=== PATIENT | female | born 1995 | race Caucasian/White ===

== ENCOUNTER 2020-07-12 08:08 | Inpatient (IN) | payer MEDICAID, OTHER ==
[~2020-07-12] VITALS: Ht 149.9 cm; Wt 63.5 kg
[2020-07-12] MEDS ORDERED: BUTORPHANOL TARTRATE 2 MG/ML VIAL IV PRN (10:00)
[2020-07-12] MEDS ORDERED: METHYLERGONOVINE MALEATE 0.2 MG/ML IM PRN (10:00)
[2020-07-12] MEDS ORDERED: LIDOCAINE HCL 1% 20ML VIAL (Pyxis) INJ INFIL SCH (10:00)
[2020-07-12] MEDS ORDERED: MISOPROSTOL 100MCG TABLET RC SCH (10:00)
[2020-07-12 10:42] LABS: BASOPHILS % 0.3 % (0.0-2.0); EOSINOPHILS % 0.6 % (0.0-5.0); HEMATOCRIT. 36.9 % (36.0-48.0); HEMOGLOBIN. 12.2 g/dL (12.0-16.0); LYMPHOCYTES % 17.7 % (20.0-50.0); MEAN CORPUSCULAR HEMOGLOBIN 28.1 pg (28.0-32.0); MEAN CORPUSCULAR VOLUME 85.1 fL (81.0-99.0); MEAN PLATELET VOLUME 8.5 fl (7.4-10.4); MONOCYTES % 8.1 % (2.0-8.0); NEUTROPHILS % 73.3 % (40.0-76.0); PLATELET 207 x1000/uL (130-400); RED BLOOD CELL COUNT 4.33 mill/uL (4.2-5.4); RED CELL DISTRIBUTION WIDTH 15.1 % (11.6-14.6)
[2020-07-12 10:53] LABS: INR 0.9; PARTIAL THROMBOPLASTIN TIME 25.6 sec (23.4-31.0); PROTHROMBIN TIME 9.7 sec (9.6-11.0)
[2020-07-12 10:55] LABS: CLARITY URINE CLOUDY (CLEAR); COLOR URINE YELLOW (YELLOW); KETONES URINE NEGATIVE (NEGATIVE); LEUKOCYTE ESTERASE URINE 3+ (NEGATIVE); NITRITE URINE NEGATIVE (NEGATIVE); OCCULT BLOOD URINE NEGATIVE (NEGATIVE); PROTEIN URINE NEGATIVE (NEGATIVE); SPECIFIC GRAVITY URINE 1.006 (1.005-1.030); UROBILINOGEN URINE 0.2 E.U./dL (0.2-1.0)
[2020-07-12 11:45] LABS: *AMPHETAMINES SCREEN URINE NEGATIVE (NEGATIVE); *BARBITURATES SCREEN URINE NEGATIVE (NEGATIVE); *BENZODIAZEPINES SCREEN URINE NEGATIVE (NEGATIVE); *COCAINE SCREEN URINE NEGATIVE (NEGATIVE)
[2020-07-12 11:46] LABS: CANNABINOID URINE SCREEN NEGATIVE (NEGATIVE); METHADONE URINE SCREEN NEGATIVE (NEGATIVE); OPIATES URINE SCREEN NEGATIVE (NEGATIVE); PHENCYCLIDINE URINE SCREEN NEGATIVE (NEGATIVE)
[2020-07-12] MEDS ORDERED: PENICILLIN G POTASSIUM 5 MMU in DEXT 5% WATER 100 ML IV SCH (12:00)
[2020-07-12 12:07] LABS: HEPATITIS B SURFACE ANTIGEN NEGATIVE
[2020-07-12] MEDS: DEXT 5%/LR + PITOCIN 20UNITS/L 1,000 ML IV SCH ×2 (13:29→21:35)
[2020-07-12] MEDS: LACTATED RINGERS 1,000 ML IV SCH ×2 (13:31→19:21)
[2020-07-12] MEDS ORDERED: ROPIVACAINE HCL/PF EPIDURAL 200 ML EPI SCH (15:45)
[2020-07-12] MEDS ORDERED: LIDOCAINE HCL 2%/EPINEPHRINE 1:100,000 20 ML VIAL INFIL ONE (15:50)
[2020-07-12] MEDS ORDERED: EPHEDRINE SULFATE 50MG/ML VIAL ONE (15:50)
[2020-07-12] MEDS: PENICILLIN G POTASSIUM 2.5 MMU in DEXTROSE 5% WATER 50 ML IV SCH ×2 (17:47→23:49)
[2020-07-13] MEDS: PENICILLIN G POTASSIUM 2.5 MMU in DEXTROSE 5% WATER 50 ML IV SCH ×2 (04:42→16:36)
[2020-07-13] MEDS: LACTATED RINGERS 1,000 ML IV SCH ×4 (04:45→22:41)
[2020-07-13] MEDS ORDERED: FENTANYL CITRATE/PF 50MCG/ML 2ML VIAL ONE ×4 (06:48→18:11)
[2020-07-13] MEDS ORDERED: ROPIVACAINE HCL/PF EPIDURAL 200 ML EPI SCH (13:15)
[2020-07-13] MEDS ORDERED: MORPHINE SULFATE/PF 1MG/ML 10ML AMP ONE (18:12)
[2020-07-13] MEDS ORDERED: CEFAZOLIN SODIUM 1000MG/VIAL ONE (18:14)
[2020-07-13] MEDS ORDERED: OXYTOCIN 10 UNITS/ML 1ML ONE (18:14)
[2020-07-13] MEDS ORDERED: CITRIC ACID/SODIUM CITRATE SOLN 30ML UDC PO NR (18:15)
[2020-07-13] MEDS ORDERED: DIPHENHYDRAMINE 50MG/ML VIAL ONE (19:09)
[2020-07-13] MEDS ORDERED: PROPOFOL 200MG/20ML VIAL IV ONE (19:13)
[2020-07-13] MEDS ORDERED: KETOROLAC 60MG/2ML VIAL IM ONE (19:13)
[2020-07-13] MEDS ORDERED: DIPHENHYDRAMINE 50MG/ML VIAL IV PRN (19:30)
[2020-07-13] MEDS ORDERED: BUTORPHANOL TARTRATE 2 MG/ML VIAL IV PRN (19:30)
[2020-07-13] MEDS ORDERED: NALOXONE HCL 0.4 MG/ML 1ML VIAL IV PRN (19:30)
[2020-07-13 22:00] VITALS: BP 99/50
[2020-07-13] MEDS ORDERED: DIPHENHYDRAMINE 25MG CAPSULE PO PRN (23:15)
[2020-07-13] MEDS ORDERED: DEXT 5%/LR + PITOCIN 20UNITS/L 1,000 ML IV SCH (23:15)
[2020-07-13] MEDS ORDERED: BISACODYL 10MG SUPP PR PRN (23:15)
[2020-07-13] MEDS ORDERED: IBUPROFEN 400MG TABLET PO PRN (23:15)
[2020-07-13] MEDS ORDERED: ONDANSETRON HCL 4MG/2ML INJ IV PRN (23:15)
[2020-07-13] MEDS ORDERED: HEMORRHOIDAL SUPP PR PRN (23:15)
[2020-07-13] MEDS ORDERED: HYDROCODONE/ACETAMINOPHEN 5/325MG TABLET PO PRN (23:15)
[2020-07-13] MEDS ORDERED: LANOLIN OINT 7GM TUBE TOP PRN (23:15)
[2020-07-13 23:34] VITALS: BP 89/44
[2020-07-14 00:30] VITALS: BP 96/45
[2020-07-14] MEDS ORDERED: KETOROLAC 30MG/ML VIAL IV SCH (01:00)
[2020-07-14 02:00] VITALS: BP 90/46
[2020-07-14 05:38] VITALS: BP 92/46
[2020-07-14] MEDS ORDERED: SODIUM CHLORIDE 0.9% 500 ML IV ONE (06:15)
[2020-07-14 07:25] LABS: BASOPHILS % 0.1 % (0.0-2.0); EOSINOPHILS % 0.1 % (0.0-5.0); HEMOGLOBIN. 8.1 g/dL (12.0-16.0); MEAN CORPUSCULAR HEMOGLOBIN 28.7 pg (28.0-32.0); MEAN CORPUSCULAR VOLUME 84.7 fL (81.0-99.0); MONOCYTES % 7.6 % (2.0-8.0); NEUTROPHILS % 83.2 % (40.0-76.0); PLATELET 157 x1000/uL (130-400); RED BLOOD CELL COUNT 2.83 mill/uL (4.2-5.4); RED CELL DISTRIBUTION WIDTH 15.3 % (11.6-14.6)
[2020-07-14 07:35] VITALS: BP 90/46
[2020-07-14] MEDS: MAGNESIUM/ALUMINUM HYDROXIDE/SIMETHICONE 30ML UDC PO SCH ×4 (08:39→23:25)
[2020-07-14] MEDS: FERROUS SULFATE 325MG TABLET PO SCH ×3 (08:39→17:12)
[2020-07-14] MEDS: PRENATAL VIT/FE FUMARATE/FA TABLET PO SCH (08:39)
[2020-07-14] MEDS: SIMETHICONE 80MG TABLET CHEW PO SCH ×4 (08:39→21:55)
[2020-07-14 16:05] VITALS: BP 89/47
[2020-07-14] MEDS: IBUPROFEN 800MG TABLET PO PRN ×2 (17:12→23:34)
[2020-07-14 20:00] VITALS: BP 94/51
[2020-07-14] MEDS ORDERED: DOCUSATE SODIUM 100MG CAPSULE PO SCH (21:00)
[2020-07-15] VITALS: BP 99/68
[2020-07-15 04:00] VITALS: BP 92/56
[2020-07-15 07:32] VITALS: BP 93/65
[2020-07-15] MEDS: SIMETHICONE 80MG TABLET CHEW PO SCH ×2 (08:19→13:19)
[2020-07-15] MEDS: MAGNESIUM/ALUMINUM HYDROXIDE/SIMETHICONE 30ML UDC PO SCH ×2 (08:19→13:19)
[2020-07-15] MEDS: PRENATAL VIT/FE FUMARATE/FA TABLET PO SCH (08:19)
[2020-07-15] MEDS: IBUPROFEN 800MG TABLET PO PRN (08:20)
[2020-07-15] MEDS: FERROUS SULFATE 325MG TABLET PO SCH ×2 (08:20→13:19)
== END 2020-07-15 22:30 | disposition home or self-care (01) | DRG 540 ==
LOC: L&D 08:08 → OBSVTOIN 08:08 → 8 EST LDRP 08:33 → 8EST 07-13 22:17
PROVIDERS: ADMIT Obstetrics & Gynecology; ATTEND Obstetrics & Gynecology
PROC: 10D00Z1 Extraction of Products of Conception, Low, Open Approach (ICD-10-PCS; principal; 2020-07-13)
PROC: 3E033VJ Introduction of Other Hormone into Peripheral Vein, Percutaneous Approach (ICD-10-PCS; 2020-07-13)
DX: O62.2 Other uterine inertia (principal); O41.03X0 Oligohydramnios, third trimester, not applicable or unspecified; Z20.822 Contact with and (suspected) exposure to COVID-19; O48.0 Post-term pregnancy; Z37.0 Single live birth; O75.81 Maternal exhaustion complicating labor and delivery; Z3A.39 39 weeks gestation of pregnancy
CPT/HCPCS: 36415; 80305; 81003; 85025; 86592; 86703; 86762; 86850; 86900; 87340; 87426; 88307; J0595; J0690; J1200; J1885; J2274; J2540; J2590; J2704; J2795; J3010; J3490; J7060